=== PATIENT | female | born 1975 | race Caucasian/White ===

== ENCOUNTER 2017-07-10 05:43 | Emergency (ER) | payer OTHER, SELFPAY ==
[2017-07-10] MEDS ORDERED: Nitroglycerin 0.4 MG TAB (25 Tab Bottle) ONE (06:07)
[2017-07-10 06:20] LABS: INR-International Normal Ratio 0.8; PTT 31.7 SEC (22.9-36.1); Prothrombin Time 11.5 SEC (12.0-14.7)
[2017-07-10] MEDS ORDERED: Morphine 4 MG/ML Carpuject ONE (06:23)
[2017-07-10] MEDS ORDERED: Ondansetron HCl/PF 4 MG/2 ML Vial ONE (06:24)
[2017-07-10 06:27] LABS: #Basophils 0.2 thou/uL (0.0-0.2); #Eosinphils 0.2 thou/uL (0.0-0.7); #Lymphocytes 2.6 thou/uL (1.20-3.40); #Monocytes 1.1 thou/uL (0.11-0.59); #Neutrophils 13.6 thou/uL (1.40-6.50); %Basophils 1.3 % (0.0-1.0); %Eosinophils 0.9 % (0.0-10.0); %Lymphocytes 14.8 % (21.0-51.0); %Monocytes 6.2 % (0.0-10.0); %Neutrophils 76.8 % (42.0-75.0); Hemoglobin 13.3 g/dL (12.0-16.0); Hypochromia SLIGHT = 6-15 cells (100X) (0-5/hpf); MDiff Complete? YES; Mean Corpuscular HGB CONC 30.1 g/dL (32.0-36.0); Mean Corpuscular Hemoglobin 22.3 pg (27.0-31.0); Mean Corpuscular Volume 73.9 fl (81.0-99.0); Mean Platelet Volume 6.5 fL (7.4-10.4); Microcytosis SLIGHT = 6-15 cells (100X) (0-5/hpf); PLT Morphology Comment Appears Increased; Platelet Count 549 thou/uL (130-400); Red Blood Cell (RBC) Count 5.97 mill/uL (4.20-5.40); White Blood Cell (WBC) Count 17.6 thou/uL (4.8-10.8)
[2017-07-10 06:29] LABS: ALT (SGPT) 13 U/L (8-55); AST (SGOT) 14 U/L (5-34); Albumin 4.4 g/dL (3.5-5.0); Alkaline Phosphatase 110 U/L (40-150); Anion Gap 15 mmol/L (10-20); BUN (Urea Nitrogen) 13 mg/dL (7.0-18.7); Bilirubin, Total 0.1 mg/dL (0.2-1.2); Calc. Creatinine Clearance 0 mL/min (70-130); Calcium 9.6 mg/dL (7.8-10.44); Carbon Dioxide 23 mmol/L (22-29); Chloride 103 mmol/L (98-107); Estimated GFR-MDRD 76; Globulin 3.1 g/dL (2.4-3.5); Glucose 138 mg/dL (70-105); Potassium 4.1 mmol/L (3.5-5.1); Protein, Total 7.5 g/dL (6.0-8.3); Sodium 137 mmol/L (136-145)
[2017-07-10 06:31] LABS: CKMB 1.7 ng/mL (0-6.6); Troponin I Less than 0.010 ng/mL (< 0.028)
--- NOTE | 2017-07-10 08:04 | RAD ---
PORTABLE CHEST 1 VIEW: DATE: 07/10/17. TIME: 6:20 a.m. HISTORY: Chest pain. FINDINGS: Comparison is made with the exam of 08/12/16. The heart size is borderline. No confluent areas of consolidation, pneumothorax, senthil pulmonary conchis ma, or pleural effusions are seen. IMPRESSION: No radiographic evidence of acute cardiopulmonary process. POS: [facility]
== END 2017-07-10 07:44 | disposition short-term general hospital (02) ==
LOC: NAV ERS 05:43
DX: R07.2 Precordial pain (principal); R00.1 Bradycardia, unspecified; F41.9 Anxiety disorder, unspecified; F17.210 Nicotine dependence, cigarettes, uncomplicated
CPT/HCPCS: 71045; 80053; 82553; 83880; 84484; 85025; 85610; 85730; 93005; 96374; 96375; J2270; J2405

== ENCOUNTER 2017-11-05 04:15 | Emergency (ER) | payer OTHER, SELFPAY ==
[2017-11-05] MEDS ORDERED: methylPREDNISolone Sod Succ/PF 125 MG/2 ML VIAL ONE (04:39)
[2017-11-05] MEDS ORDERED: Famotidine/PF 20 mg/2ml Vial ONE (04:39)
[2017-11-05] MEDS ORDERED: Sodium Chloride 0.9% 1,000 ML ONE (04:39)
[2017-11-05] MEDS ORDERED: diphenhydrAMINE 50 MG/ML VIAL ONE (05:10)
== END 2017-11-05 07:00 | disposition home or self-care (01) ==
LOC: NAV ERS 04:15
DX: T78.40XA Allergy, unspecified, initial encounter (principal); F17.210 Nicotine dependence, cigarettes, uncomplicated; F41.9 Anxiety disorder, unspecified
CPT/HCPCS: 96365; 96375; J1200; J2930; J7050; J7620; S0028